=== PATIENT | male | born 1990 | race Asian ===

== ENCOUNTER 2017-02-02 23:54 | Inpatient (IN) | payer MEDICAID, OTHER ==
[~2017-02-02] VITALS: Ht 162.6 cm; Wt 90.9 kg
[~2017-02-02 23:54] MED LIST: PALI117D IM; PALI6 PO
[2017-02-03] MEDS ORDERED: DiphenhydrAMINE HCL 50 MG/ML VIAL IM ONE ×2 (01:15→12:45)
[2017-02-03] MEDS ORDERED: HALOPERIDOL LACTATE 5 MG/ML VIAL IM ONE ×2 (01:15→12:45)
[2017-02-03] MEDS ORDERED: LORazepam 2 MG/ML VIAL IM ONE ×3 (01:15→17:15)
[2017-02-03 02:41] LABS: BASOPHILS % (AUTO) 0.3 % (0.0-2.0); EOSINOPHILS % (AUTO) 1.5 % (1.0-6.0); HEMATOCRIT 38.9 % (41-53); HEMOGLOBIN 12.5 g/dL (13.5-17.5); LYMPHOCYTES # (AUTO) 1.8 K/uL (1.0-4.8); LYMPHOCYTES % (AUTO) 20.5 % (22.0-44.0); MEAN CORPUSCULAR HEMOGLOBIN 28.1 pg (26.0-34.0); MEAN CORPUSCULAR HGB CONC 32.1 G/dL (31.0-37.0); MEAN CORPUSCULAR VOLUME 87 fL (80-100); MONOCYTES # (AUTO) 0.8 K/uL (0.1-1.0); NEUTROPHILS # (AUTO) 5.9 K/uL (1.8-7.7); NEUTROPHILS % (AUTO) 68.7 % (40.0-70.0); PLATELET COUNT (AUTO) 271 K/uL (150-450); RED BLOOD CELL COUNT(AUTO) 4.45 MIL/uL (4.50-5.90); RED CELL DISTRIBUTION WIDTH 14.6 % (11.5-14.5); WHITE BLOOD COUNT (AUTO) 8.6 K/uL (4.5-11.0)
[2017-02-03 02:52] LABS: ANION GAP 11 mmol/L (8-16); CALCIUM, TOTAL 8.2 mg/dL (8.8-10.5); CARBON DIOXIDE 23 mmol/L (22-29); CHLORIDE 104 mmol/L (98-107); CREATININE 0.94 mg/dL (0.60-1.30); GLOMERULAR FILTR. RATE CALC > 60 mL/min (>60); POTASSIUM 3.8 mmol/L (3.5-5.1); SODIUM SERUM 138 mmol/L (136-145); UREA NITROGEN, BLOOD 19 mg/dL (7-18)
[2017-02-03 02:58] LABS: ALANINE AMINOTRANSFERASE 40 U/L (12-78); ALBUMIN 3.9 g/dL (3.4-5.0); ASPARTATE AMINOTRANSFERASE 24 U/L (15-37); BILIRUBIN,TOTAL 0.5 mg/dL (0.1-1.0); TOTAL PROTEIN, SERUM 7.5 g/dL (6.4-8.2)
[2017-02-03] MEDS: HALOPERIDOL 5 MG TABLET PO PRN (08:47)
[2017-02-03] MEDS: LORazepam 2 MG TABLET PO PRN (08:47)
[2017-02-03 18:05] VITALS: BP 147/98
[2017-02-04] MEDS: ZOLPIDEM TARTRATE 10 MG TABLET PO PRN (01:08)
[2017-02-04] MEDS: HALOPERIDOL 5 MG TABLET PO PRN (07:47)
[2017-02-04] MEDS: NICOTINE 21 MG/24 HOUR PATCH TD SCH (07:47)
[2017-02-04] MEDS: LORazepam 2 MG TABLET PO PRN ×2 (07:48→18:01)
[2017-02-04 08:30] VITALS: BP 153/96
[2017-02-04] MEDS: PALIPERIDONE 6 MG ER TABLET PO SCH ×2 (10:33→17:19)
[2017-02-04] MEDS ORDERED: IBUPROFEN 400 MG TABLET PO PRN (15:15)
[2017-02-04] MEDS ORDERED: ACETAMINOPHEN 325 MG TABLET PO PRN (15:15)
[2017-02-04] MEDS: FERROUS SULFATE 325 MG EC TABLET PO SCH (17:19)
[2017-02-04 19:00] VITALS: BP 124/76
[2017-02-05] MEDS: HALOPERIDOL 5 MG TABLET PO PRN ×4 (00:41→20:14)
[2017-02-05] MEDS: ZOLPIDEM TARTRATE 10 MG TABLET PO PRN ×2 (00:41→21:32)
[2017-02-05] MEDS: LORazepam 2 MG TABLET PO PRN ×3 (04:50→19:05)
[2017-02-05] MEDS: FERROUS SULFATE 325 MG EC TABLET PO SCH ×2 (06:55→17:11)
[2017-02-05 07:18] LABS: HEMOGLOBIN A1C 5.7 % (4.5-6.2)
[2017-02-05 07:19] LABS: CHOL/HDL RATIO 2.2 (4.2-7.3); THYROID STIMULATING HORMONE 2.12 uIU/mL (0.36-3.74)
[2017-02-05] MEDS: PALIPERIDONE 6 MG ER TABLET PO SCH ×2 (08:10→17:11)
[2017-02-05] MEDS: NICOTINE 21 MG/24 HOUR PATCH TD SCH (08:10)
[2017-02-05 08:17] VITALS: BP 135/78
[2017-02-05] MEDS ORDERED: LORazepam 2 MG/ML VIAL IM ONE (08:30)
[2017-02-05] MEDS ORDERED: HALOPERIDOL LACTATE 5 MG/ML VIAL IM ONE (08:30)
[2017-02-05] MEDS ORDERED: DiphenhydrAMINE HCL 50 MG/ML VIAL IM ONE (08:30)
[2017-02-05] MEDS ORDERED: LORazepam 2 MG/ML VIAL ONE (08:33)
[2017-02-05] MEDS ORDERED: DiphenhydrAMINE HCL 50 MG/ML VIAL ONE (08:34)
[2017-02-05] MEDS ORDERED: HALOPERIDOL LACTATE 5 MG/ML VIAL ONE (08:34)
[2017-02-05] MEDS ORDERED: PALIPERIDONE PALMITATE 234 MG/1.5 ML SYRINGE IM SCH (09:00)
[2017-02-05 18:49] VITALS: BP 122/79
[2017-02-06] MEDS: LORazepam 2 MG TABLET PO PRN ×2 (01:06→18:55)
[2017-02-06] MEDS: HALOPERIDOL 5 MG TABLET PO PRN ×2 (01:21→18:55)
[2017-02-06] MEDS: FERROUS SULFATE 325 MG EC TABLET PO SCH ×2 (07:05→16:47)
[2017-02-06] MEDS: PALIPERIDONE 6 MG ER TABLET PO SCH ×2 (08:12→16:47)
[2017-02-06] MEDS: NICOTINE 21 MG/24 HOUR PATCH TD SCH (08:13)
[2017-02-06 13:09] VITALS: BP 136/89
[2017-02-06 16:30] VITALS: BP 134/90
[2017-02-06 17:36] LABS: ADD UA MICROSCOPIC NO; APPEARANCE,URINE CLEAR (CLEAR); GLUCOSE, URINE (UA) NEGATIVE (NEGATIVE); KETONES,URINE NEGATIVE (NEGATIVE); LEUKOCYTE ESTERASE ,URINE NEGATIVE (NEGATIVE); OCCULT BLOOD,URINE NEGATIVE (NEGATIVE); PROTEIN,URINE NEGATIVE (NEGATIVE)
[2017-02-07] MEDS: LORazepam 2 MG TABLET PO PRN ×2 (02:20→16:09)
[2017-02-07] MEDS: ZOLPIDEM TARTRATE 10 MG TABLET PO PRN ×2 (02:20→20:48)
[2017-02-07] MEDS: FERROUS SULFATE 325 MG EC TABLET PO SCH ×2 (07:00→17:58)
[2017-02-07 08:29] VITALS: BP 124/78
[2017-02-07] MEDS: PALIPERIDONE 6 MG ER TABLET PO SCH ×2 (09:35→16:07)
[2017-02-07] MEDS: NICOTINE 21 MG/24 HOUR PATCH TD SCH (09:37)
[2017-02-07 16:00] VITALS: BP 147/92
[2017-02-08 00:16] VITALS: BP 132/81
[2017-02-08] MEDS: LORazepam 2 MG TABLET PO PRN (00:18)
[2017-02-08] MEDS: HALOPERIDOL 5 MG TABLET PO PRN (00:46)
[2017-02-08] MEDS: FERROUS SULFATE 325 MG EC TABLET PO SCH (07:02)
[2017-02-08 08:13] VITALS: BP 136/86
[2017-02-08] MEDS: PALIPERIDONE 6 MG ER TABLET PO SCH (08:15)
[2017-02-08] MEDS: NICOTINE 21 MG/24 HOUR PATCH TD SCH (08:16)
[2017-02-08] MEDS ORDERED: FERR-89 PO (10:46)
== END 2017-02-08 12:10 | disposition home or self-care (01) | DRG 750 ==
LOC: EMS 23:55 → 3EC 02-03 17:03
PROVIDERS: ADMIT Psychiatry & Neurology Child & Adolescent Psychiatry; ATTEND Psychiatry & Neurology Child & Adolescent Psychiatry
DX: F25.1 Schizoaffective disorder, depressive type (principal); R45.851 Suicidal ideations; E83.51 Hypocalcemia; I10 Essential (primary) hypertension; Z72.0 Tobacco use; D64.9 Anemia, unspecified; F12.10 Cannabis abuse, uncomplicated; Z78.1 Physical restraint status
CPT/HCPCS: 83036; 84443; 96372; 99285; G0480; J1200; J1630; J2060

== ENCOUNTER 2017-03-20 11:04 | Emergency (ER) | payer MEDICAID, OTHER ==
[~2017-03-20] VITALS: Ht 175.3 cm; Wt 90.9 kg
[~2017-03-20 11:04] MED LIST changes: +FERR-89 PO
[2017-03-20 12:39] VITALS: BP 128/77
== END 2017-03-20 15:24 | disposition home or self-care (01) ==
LOC: EMS 11:06
DX: S82.832A Other fracture of upper and lower end of left fibula, initial encounter for closed fracture (principal); F12.90 Cannabis use, unspecified, uncomplicated; F15.90 Other stimulant use, unspecified, uncomplicated; F17.210 Nicotine dependence, cigarettes, uncomplicated; X58.XXXA Exposure to other specified factors, initial encounter; Y93.89 Activity, other specified; Y92.89 Other specified places as the place of occurrence of the external cause; Y99.8 Other external cause status
CPT/HCPCS: 29515; 99284

== ENCOUNTER 2019-10-27 00:10 | Inpatient (IN) | payer MEDICAID, OTHER ==
[~2019-10-27] VITALS: Ht 163.8 cm; Wt 97.5 kg
[~2019-10-27 00:10] MED LIST changes: +DIVA-78 PO; -FERR-89 PO; -PALI117D IM
[2019-10-27] MEDS ORDERED: ONDANSETRON HCL 4 MG/2 ML VIAL IVP PRN (04:30)
[2019-10-27] MEDS ORDERED: 0.9% SODIUM CHLORIDE 10 ML SYRINGE IVP PRN (04:30)
[2019-10-27] MEDS ORDERED: ACETAMINOPHEN 325 MG TABLET PO PRN ×2 (04:30→13:45)
[2019-10-27 04:39] LABS: ANION GAP 8 mmol/L (8-16); CALCIUM, TOTAL 8.4 mg/dL (8.8-10.5); CARBON DIOXIDE 26 mmol/L (22-29); CHLORIDE 105 mmol/L (98-107); CREATININE 0.81 mg/dL (0.60-1.30); GLOMERULAR FILTR. RATE CALC > 60 mL/min (>60); GLUCOSE,RANDOM 176 mg/dL (70-110); POTASSIUM 3.6 mmol/L (3.5-5.1); SODIUM SERUM 139 mmol/L (136-145); UREA NITROGEN, BLOOD 15 mg/dL (7-18)
[2019-10-27 04:44] LABS: BASOPHILS % (AUTO) 0.4 % (0.0-2.0); HEMATOCRIT 35.2 % (41-53); HEMOGLOBIN 11.6 g/dL (13.5-17.5); LYMPHOCYTES # (AUTO) 1.2 K/uL (1.0-4.8); LYMPHOCYTES % (AUTO) 14.7 % (22.0-44.0); MEAN CORPUSCULAR HEMOGLOBIN 28.1 pg (26.0-34.0); MEAN CORPUSCULAR HGB CONC 32.9 G/dL (31.0-37.0); MEAN CORPUSCULAR VOLUME 86 fL (80-100); MONOCYTES # (AUTO) 0.7 K/uL (0.1-1.0); MONOCYTES % (AUTO) 9.2 % (2.0-9.0); NEUTROPHILS # (AUTO) 5.9 K/uL (1.8-7.7); NEUTROPHILS % (AUTO) 73.7 % (40.0-70.0); PLATELET COUNT (AUTO) 270 K/uL (150-450); RED BLOOD CELL COUNT(AUTO) 4.12 MIL/uL (4.50-5.90); RED CELL DISTRIBUTION WIDTH 15.8 % (11.5-14.5)
[2019-10-27 04:46] LABS: ALANINE AMINOTRANSFERASE 80 U/L (12-78); ALBUMIN 3.5 g/dL (3.4-5.0); ALKALINE PHOSPHATASE 64 U/L (46-116); ASPARTATE AMINOTRANSFERASE 59 U/L (15-37); BILIRUBIN,TOTAL 0.5 mg/dL (0.1-1.0); TOTAL PROTEIN, SERUM 7.1 g/dL (6.4-8.2)
[2019-10-27 08:26] LABS: AMPHET/METH SCREEN,URINE NEGATIVE (NEGATIVE); BARBITURATE SCREEN, URINE NEGATIVE (NEGATIVE); BENZODIAZEPINES SCREEN,URINE NEGATIVE (NEGATIVE); CANNABINOID SCREEN,URINE POSITIVE (NEGATIVE); COCAINE SCREEN,URINE NEGATIVE (NEGATIVE); METHADONE SCREEN, URINE NEGATIVE (NEGATIVE); OPIATE SCREEN,URINE NEGATIVE (NEGATIVE)
[2019-10-27 08:27] LABS: PHENCYCLIDINE SCREEN,URINE NEGATIVE (NEGATIVE)
[2019-10-27] MEDS ORDERED: MAG HYDROX/AL HYDROX/SIMETH ES 30 ML SUSPENSION UDCUP PO PRN ×2 (13:45)
[2019-10-27] MEDS ORDERED: NICOTINE 14 MG/24 HOUR PATCH TD PRN ×2 (13:45)
[2019-10-27] MEDS ORDERED: ALBUTEROL SULFATE HFA 90 MCG/PUFF 8 GM INHALER IH PRN ×2 (13:45)
[2019-10-27] MEDS ORDERED: DiphenhydrAMINE HCL 50 MG/ML VIAL IM ONE (13:45)
[2019-10-27] MEDS ORDERED: HALOPERIDOL LACTATE 5 MG/ML VIAL IM ONE (13:45)
[2019-10-27] MEDS ORDERED: GuaiFENesin/D-METHORPHAN [SUGAR-FREE] 200-20MG/10 ML SYRUP UDCUP PO PRN (13:45)
[2019-10-27] MEDS ORDERED: ONDANSETRON HCL 4 MG TABLET PO PRN ×2 (13:45)
[2019-10-27] MEDS ORDERED: CloNIDine HCL 0.1 MG TABLET PO PRN ×2 (13:45)
[2019-10-27] MEDS ORDERED: LOPERAMIDE HCL 2 MG CAPSULE PO PRN ×2 (13:45)
[2019-10-27] MEDS ORDERED: MAGNESIUM HYDROXIDE SUSPENSION 30 ML UDCUP PO PRN ×2 (13:45)
[2019-10-27] MEDS ORDERED: LORazepam 2 MG/ML VIAL IM ONE (13:45)
[2019-10-27] MEDS ORDERED: PETROLATUM,WHITE 28 GM JELLY TP PRN ×2 (13:45)
[2019-10-27] MEDS ORDERED: DOCUSATE SODIUM 100 MG CAPSULE PO PRN ×2 (13:45)
[2019-10-27] MEDS ORDERED: IBUPROFEN 400 MG TABLET PO PRN (13:45)
[2019-10-27] MEDS ORDERED: INFLUENZA VIRUS VACCINE QVS 2019-20 (3YR+)/PF 60 MCG/0.5 ML SYRINGE IM ONE (18:45)
[2019-10-27] MEDS: PALIPERIDONE 6 MG ER TABLET PO SCH (21:18)
[2019-10-27] MEDS: DIVALPROEX SODIUM 500 MG DR TABLET PO SCH (21:18)
[2019-10-27 21:44] VITALS: BP 129/59
[2019-10-27] MEDS: IBUPROFEN 400 MG TABLET PO PRN (21:44)
[2019-10-27] MEDS: GuaiFENesin/D-METHORPHAN [SUGAR-FREE] 200-20MG/10 ML SYRUP UDCUP PO PRN (22:53)
[2019-10-28 00:11] VITALS: BP_SYST 126; BP_SYST 148; BP_DIAS 61; BP_DIAS 85
[2019-10-28] MEDS: ACETAMINOPHEN 325 MG TABLET PO PRN (00:13)
[2019-10-28 08:14] VITALS: BP 134/80
[2019-10-28] MEDS: DIVALPROEX SODIUM 500 MG DR TABLET PO SCH ×2 (08:39→20:09)
[2019-10-28] MEDS: PALIPERIDONE 6 MG ER TABLET PO SCH ×2 (08:40→20:09)
[2019-10-28] MEDS: IBUPROFEN 400 MG TABLET PO PRN (09:28)
[2019-10-28] MEDS: GuaiFENesin/D-METHORPHAN [SUGAR-FREE] 200-20MG/10 ML SYRUP UDCUP PO PRN ×2 (10:12→16:15)
[2019-10-28 16:13] VITALS: BP 143/76
[2019-10-28] MEDS: LORazepam 2 MG TABLET PO PRN ×2 (16:24→20:30)
[2019-10-28] MEDS: HALOPERIDOL 5 MG TABLET PO PRN (16:35)
[2019-10-28] MEDS: ZOLPIDEM TARTRATE 10 MG TABLET PO PRN (20:30)
[2019-10-29 01:34] VITALS: BP 145/61
[2019-10-29] MEDS: HALOPERIDOL 5 MG TABLET PO PRN ×3 (02:11→15:54)
[2019-10-29] MEDS: LORazepam 2 MG TABLET PO PRN ×3 (02:11→15:54)
[2019-10-29] MEDS: IBUPROFEN 400 MG TABLET PO PRN (02:32)
[2019-10-29] MEDS: DIVALPROEX SODIUM 500 MG DR TABLET PO SCH ×3 (08:37→22:07)
[2019-10-29] MEDS: PALIPERIDONE 6 MG ER TABLET PO SCH ×3 (08:37→22:07)
[2019-10-29 09:49] VITALS: BP 113/65
[2019-10-29] MEDS: GuaiFENesin/D-METHORPHAN [SUGAR-FREE] 200-20MG/10 ML SYRUP UDCUP PO PRN (14:30)
[2019-10-29] MEDS ORDERED: LORazepam 2 MG/ML VIAL ONE (16:19)
[2019-10-29] MEDS ORDERED: DiphenhydrAMINE HCL 50 MG/ML VIAL ONE (16:19)
[2019-10-29] MEDS ORDERED: HALOPERIDOL LACTATE 5 MG/ML VIAL ONE (16:20)
[2019-10-29] MEDS ORDERED: HALOPERIDOL LACTATE 5 MG/ML VIAL IM ONE (16:20)
[2019-10-29] MEDS ORDERED: LORazepam 2 MG/ML VIAL IM ONE (16:20)
[2019-10-29] MEDS ORDERED: DiphenhydrAMINE HCL 50 MG/ML VIAL IM ONE (16:20)
[2019-10-29 16:30] VITALS: BP 117/81
[2019-10-29] MEDS ORDERED: DIVA250T4 PO (17:15)
[2019-10-29 18:29] VITALS: BP 117/81
[2019-10-30 01:15] VITALS: BP 120/92
[2019-10-30] MEDS: IBUPROFEN 400 MG TABLET PO PRN ×2 (02:09→13:56)
[2019-10-30] MEDS: GuaiFENesin/D-METHORPHAN [SUGAR-FREE] 200-20MG/10 ML SYRUP UDCUP PO PRN ×2 (02:10→17:13)
[2019-10-30 08:11] VITALS: BP 143/94
[2019-10-30] MEDS: PALIPERIDONE 6 MG ER TABLET PO SCH ×2 (09:20→20:25)
[2019-10-30] MEDS: DIVALPROEX SODIUM 500 MG DR TABLET PO SCH ×2 (09:20→20:42)
[2019-10-30 17:06] VITALS: BP 121/73
[2019-10-30] MEDS: LORazepam 2 MG TABLET PO PRN (17:13)
[2019-10-30] MEDS: ZOLPIDEM TARTRATE 10 MG TABLET PO PRN (20:25)
[2019-10-30] MEDS: HALOPERIDOL 5 MG TABLET PO PRN (20:41)
[2019-10-31 00:44] VITALS: BP 116/83
[2019-10-31] MEDS: ACETAMINOPHEN 325 MG TABLET PO PRN (01:11)
[2019-10-31] MEDS: GuaiFENesin/D-METHORPHAN [SUGAR-FREE] 200-20MG/10 ML SYRUP UDCUP PO PRN (02:44)
[2019-10-31] MEDS: IBUPROFEN 400 MG TABLET PO PRN (02:44)
[2019-10-31 08:23] VITALS: BP 126/97
[2019-10-31] MEDS: DIVALPROEX SODIUM 500 MG DR TABLET PO SCH ×2 (08:27→20:31)
[2019-10-31] MEDS: PALIPERIDONE 6 MG ER TABLET PO SCH ×2 (08:27→20:31)
[2019-10-31] MEDS: LORazepam 2 MG TABLET PO PRN ×2 (09:01→16:44)
[2019-10-31 16:19] VITALS: BP 129/75
[2019-11-01] MEDS: ZOLPIDEM TARTRATE 10 MG TABLET PO PRN ×2 (00:15→20:15)
[2019-11-01] MEDS: LORazepam 2 MG TABLET PO PRN ×3 (00:15→20:44)
[2019-11-01] MEDS: IBUPROFEN 400 MG TABLET PO PRN ×2 (02:40→23:45)
[2019-11-01 05:33] VITALS: BP 126/68
[2019-11-01] MEDS: PALIPERIDONE 6 MG ER TABLET PO SCH (08:21)
[2019-11-01] MEDS: DIVALPROEX SODIUM 500 MG DR TABLET PO SCH ×2 (08:21→20:15)
[2019-11-01 08:45] VITALS: BP 124/79
[2019-11-01] MEDS: GuaiFENesin/D-METHORPHAN [SUGAR-FREE] 200-20MG/10 ML SYRUP UDCUP PO PRN (13:00)
[2019-11-01 16:15] VITALS: BP 106/85
[2019-11-01] MEDS: HALOPERIDOL 5 MG TABLET PO PRN (16:44)
[2019-11-01] MEDS ORDERED: DIVA-78 PO (17:00)
[2019-11-01] MEDS ORDERED: PALI3 PO (17:00)
[2019-11-01] MEDS: PALIPERIDONE 3 MG ER TABLET PO SCH (20:15)
[2019-11-02 01:26] VITALS: BP 138/91
[2019-11-02] MEDS: GuaiFENesin/D-METHORPHAN [SUGAR-FREE] 200-20MG/10 ML SYRUP UDCUP PO PRN ×2 (05:04→22:00)
[2019-11-02 08:23] VITALS: BP 140/108
[2019-11-02] MEDS: PALIPERIDONE 3 MG ER TABLET PO SCH ×2 (08:35→20:19)
[2019-11-02] MEDS: DIVALPROEX SODIUM 500 MG DR TABLET PO SCH ×2 (08:36→20:20)
[2019-11-02 16:06] VITALS: BP 123/69
[2019-11-02] MEDS: LORazepam 2 MG TABLET PO PRN (16:20)
[2019-11-02] MEDS: ZOLPIDEM TARTRATE 10 MG TABLET PO PRN (20:19)
[2019-11-02] MEDS: IBUPROFEN 400 MG TABLET PO PRN (22:00)
[2019-11-02 22:02] VITALS: BP 140/86
[2019-11-03 00:22] VITALS: BP 133/91
[2019-11-03] MEDS: PALIPERIDONE 3 MG ER TABLET PO SCH ×2 (08:01→20:12)
[2019-11-03] MEDS: DIVALPROEX SODIUM 500 MG DR TABLET PO SCH ×2 (08:01→20:12)
[2019-11-03 08:06] VITALS: BP 162/76
[2019-11-03] MEDS: GuaiFENesin/D-METHORPHAN [SUGAR-FREE] 200-20MG/10 ML SYRUP UDCUP PO PRN (10:03)
[2019-11-03] MEDS ORDERED: MULTIVITAMINS, THERAPEUTIC TABLET PO ONE (11:00)
[2019-11-03] MEDS ORDERED: PALIPERIDONE PALMITATE 234 MG/1.5 ML SYRINGE IM SCH (16:00)
[2019-11-03 16:22] VITALS: BP 150/94
[2019-11-03] MEDS: LORazepam 2 MG TABLET PO PRN ×2 (17:00→21:00)
[2019-11-03] MEDS: ZOLPIDEM TARTRATE 10 MG TABLET PO PRN (20:12)
[2019-11-04 00:21] VITALS: BP 127/82
[2019-11-04] MEDS: PALIPERIDONE 3 MG ER TABLET PO SCH (08:30)
[2019-11-04] MEDS: DIVALPROEX SODIUM 500 MG DR TABLET PO SCH (08:31)
[2019-11-04 08:35] VITALS: BP 139/64
[2019-11-04] MEDS ORDERED: DIVA-78 PO (10:51)
[2019-11-04] MEDS ORDERED: PALI234D IM (10:51)
[2019-11-06] MEDS ORDERED: PALIPERIDONE PALMITATE 156 MG/ML SYRINGE IM ONE (09:00)
== END 2019-11-04 13:30 | disposition home or self-care (01) | DRG 750 ==
LOC: EMS 00:10 → B3A 07:11
DX: F25.0 Schizoaffective disorder, bipolar type (principal); Z59.0 Homelessness; D64.9 Anemia, unspecified; F12.10 Cannabis abuse, uncomplicated; F15.10 Other stimulant abuse, uncomplicated; I10 Essential (primary) hypertension; F17.210 Nicotine dependence, cigarettes, uncomplicated; F41.9 Anxiety disorder, unspecified; R73.9 Hyperglycemia, unspecified
CPT/HCPCS: 83036; G0480; J1200; J1630; J2060

== ENCOUNTER 2019-11-07 00:58 | Emergency (ER) | payer MEDICAID, OTHER ==
[~2019-11-07] VITALS: Ht 163.8 cm; Wt 95.5 kg
[~2019-11-07 00:58] MED LIST changes: +PALI234D IM; -PALI6 PO
[2019-11-07 01:30] VITALS: BP 140/88
[2019-11-07] MEDS ORDERED: IBUPROFEN 800 MG TABLET PO ONE (01:30)
== END 2019-11-07 02:01 | disposition home or self-care (01) ==
LOC: EMS 00:59
DX: M79.671 Pain in right foot (principal); M79.672 Pain in left foot; F31.9 Bipolar disorder, unspecified; F20.9 Schizophrenia, unspecified; F12.90 Cannabis use, unspecified, uncomplicated; F19.90 Other psychoactive substance use, unspecified, uncomplicated; Z59.0 Homelessness

== ENCOUNTER 2019-11-11 23:01 | Emergency (ER) | payer OTHER ==
[~2019-11-11] VITALS: Ht 162.6 cm; Wt 97.7 kg
[2019-11-11 23:18] VITALS: BP 121/70
[2019-11-11 23:51] LABS: BASOPHILS % (AUTO) 0.4 % (0.0-2.0); HEMOGLOBIN 11.8 g/dL (13.5-17.5); LYMPHOCYTES % (AUTO) 11.7 % (22.0-44.0); MEAN CORPUSCULAR HEMOGLOBIN 28.2 pg (26.0-34.0); MEAN CORPUSCULAR HGB CONC 32.7 G/dL (31.0-37.0); MEAN CORPUSCULAR VOLUME 86 fL (80-100); MONOCYTES # (AUTO) 0.7 K/uL (0.1-1.0); MONOCYTES % (AUTO) 8.2 % (2.0-9.0); NEUTROPHILS # (AUTO) 6.7 K/uL (1.8-7.7); NEUTROPHILS % (AUTO) 77.7 % (40.0-70.0); PLATELET COUNT (AUTO) 284 K/uL (150-450); RED BLOOD CELL COUNT(AUTO) 4.18 MIL/uL (4.50-5.90); RED CELL DISTRIBUTION WIDTH 15.2 % (11.5-14.5)
[2019-11-11 23:58] LABS: ANION GAP 7 mmol/L (8-16); CALCIUM, TOTAL 8.9 mg/dL (8.8-10.5); CARBON DIOXIDE 30 mmol/L (22-29); CHLORIDE 102 mmol/L (98-107); CREATININE 0.97 mg/dL (0.60-1.30); GLOMERULAR FILTR. RATE CALC > 60 mL/min (>60); GLUCOSE,RANDOM 124 mg/dL (70-110); POTASSIUM 3.5 mmol/L (3.5-5.1); SODIUM SERUM 139 mmol/L (136-145); UREA NITROGEN, BLOOD 14 mg/dL (7-18)
[2019-11-12 00:04] LABS: ALANINE AMINOTRANSFERASE 86 U/L (12-78); ALBUMIN 3.3 g/dL (3.4-5.0); ALKALINE PHOSPHATASE 77 U/L (46-116); ASPARTATE AMINOTRANSFERASE 55 U/L (15-37); BILIRUBIN,TOTAL 0.3 mg/dL (0.1-1.0)
[2019-11-12 00:16] LABS: VALPROIC ACID < 3 mcg/mL (50-100)
[2019-11-12 00:30] LABS: AMPHET/METH SCREEN,URINE NEGATIVE (NEGATIVE); BARBITURATE SCREEN, URINE NEGATIVE (NEGATIVE); BENZODIAZEPINES SCREEN,URINE NEGATIVE (NEGATIVE); CANNABINOID SCREEN,URINE POSITIVE (NEGATIVE); COCAINE SCREEN,URINE NEGATIVE (NEGATIVE); METHADONE SCREEN, URINE NEGATIVE (NEGATIVE); OPIATE SCREEN,URINE NEGATIVE (NEGATIVE)
[2019-11-12 00:31] LABS: PHENCYCLIDINE SCREEN,URINE NEGATIVE (NEGATIVE)
== END 2019-11-12 02:30 | disposition home or self-care (01) ==
LOC: EMS 23:02
DX: F20.9 Schizophrenia, unspecified (principal); F31.9 Bipolar disorder, unspecified; F17.210 Nicotine dependence, cigarettes, uncomplicated; F15.90 Other stimulant use, unspecified, uncomplicated; F12.90 Cannabis use, unspecified, uncomplicated; Z59.0 Homelessness; Z79.899 Other long term (current) drug therapy
CPT/HCPCS: 36415; 80053; 80164; 80307; 85025; 99284; G0480

== ENCOUNTER 2019-11-15 22:39 | Emergency (ER) | payer OTHER ==
[~2019-11-15] VITALS: Ht 162.6 cm; Wt 90.9 kg
[~2019-11-15 22:39] MED LIST changes: -DIVA-78 PO
[2019-11-15 22:48] VITALS: BP 120/71
== END 2019-11-16 01:12 | disposition left against medical advice (07) ==
LOC: EMS 22:41
DX: M25.572 Pain in left ankle and joints of left foot (principal); Z53.21 Procedure and treatment not carried out due to patient leaving prior to being seen by health care provider

== ENCOUNTER 2020-02-15 19:27 | Emergency (ER) | payer OTHER ==
[~2020-02-15] VITALS: Ht 162.6 cm; Wt 81.8 kg
[2020-02-15 20:14] VITALS: BP 117/67
[2020-02-15] MEDS ORDERED: BACITRACIN 0.9 GM PACKET OINTMENT TP ONE (20:15)
[2020-02-15] MEDS ORDERED: PERTUSS(ACELL),DIPH,TET VAC/PF 0.5 ML VIAL IM ONE (20:15)
[2020-02-15 20:52] LABS: BASOPHILS % (AUTO) 0.3 % (0.0-2.0); HEMATOCRIT 39.8 % (41-53); HEMOGLOBIN 13.3 g/dL (13.5-17.5); LYMPHOCYTES # (AUTO) 0.9 K/uL (1.0-4.8); LYMPHOCYTES % (AUTO) 12.4 % (22.0-44.0); MEAN CORPUSCULAR HEMOGLOBIN 28.4 pg (26.0-34.0); MEAN CORPUSCULAR HGB CONC 33.5 G/dL (31.0-37.0); MEAN CORPUSCULAR VOLUME 85 fL (80-100); MONOCYTES # (AUTO) 0.5 K/uL (0.1-1.0); NEUTROPHILS # (AUTO) 5.8 K/uL (1.8-7.7); NEUTROPHILS % (AUTO) 78.3 % (40.0-70.0); PLATELET COUNT (AUTO) 250 K/uL (150-450); RED BLOOD CELL COUNT(AUTO) 4.69 MIL/uL (4.50-5.90); RED CELL DISTRIBUTION WIDTH 14.6 % (11.5-14.5)
[2020-02-15] MEDS ORDERED: DIPH25CA85 PO (20:58)
[2020-02-15 21:02] LABS: ANION GAP 11 mmol/L (8-16); CALCIUM, TOTAL 9.1 mg/dL (8.8-10.5); CARBON DIOXIDE 25 mmol/L (22-29); CHLORIDE 106 mmol/L (98-107); CREATININE 0.94 mg/dL (0.60-1.30); GLOMERULAR FILTR. RATE CALC > 60 mL/min (>60); GLUCOSE,RANDOM 109 mg/dL (70-110); POTASSIUM 3.7 mmol/L (3.5-5.1); SODIUM SERUM 142 mmol/L (136-145); UREA NITROGEN, BLOOD 22 mg/dL (7-18)
[2020-02-15 21:13] LABS: INR 1.1 (0.9-1.1); PROTHROMBIN TIME 10.9 SEC (9.4-11.6)
[2020-02-15 21:28] LABS: ALANINE AMINOTRANSFERASE 59 U/L (12-78); ALKALINE PHOSPHATASE 86 U/L (46-116); ASPARTATE AMINOTRANSFERASE 29 U/L (15-37); BILIRUBIN,TOTAL 0.4 mg/dL (0.1-1.0); CREATINE KINASE, TOTAL ONLY 700 U/L (39-308); TOTAL PROTEIN, SERUM 7.7 g/dL (6.4-8.2)
[2020-02-15 21:46] LABS: B-TYPE NATRIURETIC PEPTIDE < 5 pg/mL (0-100)
== END 2020-02-15 21:43 | disposition left against medical advice (07) ==
LOC: EMS 19:29
DX: S09.90XA Unspecified injury of head, initial encounter (principal); F31.9 Bipolar disorder, unspecified; F20.9 Schizophrenia, unspecified; F17.210 Nicotine dependence, cigarettes, uncomplicated; F15.90 Other stimulant use, unspecified, uncomplicated; F12.90 Cannabis use, unspecified, uncomplicated; Y04.0XXA Assault by unarmed brawl or fight, initial encounter; Y93.89 Activity, other specified; Y92.89 Other specified places as the place of occurrence of the external cause; Y99.8 Other external cause status
CPT/HCPCS: 70450; 71045; 72125; 80053; 82550; 83880; 84484; 85025; 85610; 85730; 93005; 99285; 99406; G0480; 90715

== ENCOUNTER 2020-02-18 13:17 | Inpatient (IN) | payer MEDICAID, OTHER ==
[~2020-02-18] VITALS: Ht 162.6 cm; Wt 77.3 kg
[~2020-02-18 13:17] MED LIST changes: +DIPH25CA85 PO
[2020-02-18] MEDS ORDERED: LORazepam 2 MG/ML VIAL IM ONE ×2 (14:00→19:00)
[2020-02-18] MEDS ORDERED: HALOPERIDOL LACTATE 5 MG/ML VIAL IM ONE ×2 (14:00→19:00)
[2020-02-18 14:05] LABS: BASOPHILS % (AUTO) 0.3 % (0.0-2.0); EOSINOPHILS % (AUTO) 2.2 % (1.0-6.0); HEMATOCRIT 38.6 % (41-53); HEMOGLOBIN 12.4 g/dL (13.5-17.5); LYMPHOCYTES # (AUTO) 1.7 K/uL (1.0-4.8); LYMPHOCYTES % (AUTO) 24.5 % (22.0-44.0); MEAN CORPUSCULAR HEMOGLOBIN 27.8 pg (26.0-34.0); MEAN CORPUSCULAR VOLUME 87 fL (80-100); MONOCYTES # (AUTO) 0.7 K/uL (0.1-1.0); MONOCYTES % (AUTO) 9.4 % (2.0-9.0); NEUTROPHILS # (AUTO) 4.4 K/uL (1.8-7.7); NEUTROPHILS % (AUTO) 63.6 % (40.0-70.0); PLATELET COUNT (AUTO) 220 K/uL (150-450); RED BLOOD CELL COUNT(AUTO) 4.45 MIL/uL (4.50-5.90); RED CELL DISTRIBUTION WIDTH 14.8 % (11.5-14.5)
[2020-02-18 14:14] LABS: ANION GAP 9 mmol/L (8-16); CALCIUM, TOTAL 8.8 mg/dL (8.8-10.5); CARBON DIOXIDE 27 mmol/L (22-29); CHLORIDE 106 mmol/L (98-107); CREATININE 0.83 mg/dL (0.60-1.30); GLOMERULAR FILTR. RATE CALC > 60 mL/min (>60); GLUCOSE,RANDOM 97 mg/dL (70-110); POTASSIUM 3.8 mmol/L (3.5-5.1); SODIUM SERUM 142 mmol/L (136-145); UREA NITROGEN, BLOOD 17 mg/dL (7-18)
[2020-02-18 14:21] LABS: ALANINE AMINOTRANSFERASE 52 U/L (12-78); ALBUMIN 3.8 g/dL (3.4-5.0); ALKALINE PHOSPHATASE 81 U/L (46-116); ASPARTATE AMINOTRANSFERASE 35 U/L (15-37); BILIRUBIN,TOTAL 0.5 mg/dL (0.1-1.0); TOTAL PROTEIN, SERUM 7.5 g/dL (6.4-8.2)
[2020-02-18] MEDS ORDERED: HALOPERIDOL 5 MG TABLET PO ONE (15:00)
[2020-02-18] MEDS ORDERED: LORazepam 2 MG TABLET PO ONE (15:00)
[2020-02-18] MEDS ORDERED: LORazepam 2 MG TABLET PO PRN (16:00)
[2020-02-18] MEDS ORDERED: DiphenhydrAMINE HCL 50 MG/ML VIAL IM ONE (19:00)
[2020-02-19 00:30] VITALS: BP 132/83
[2020-02-19] MEDS: HALOPERIDOL 5 MG TABLET PO PRN ×2 (06:15→16:16)
[2020-02-19 08:26] LABS: BASOPHILS % (AUTO) 0.4 % (0.0-2.0); EOSINOPHILS % (AUTO) 3.2 % (1.0-6.0); HEMATOCRIT 36.9 % (41-53); HEMOGLOBIN 12.2 g/dL (13.5-17.5); LYMPHOCYTES # (AUTO) 0.8 K/uL (1.0-4.8); LYMPHOCYTES % (AUTO) 17.8 % (22.0-44.0); MEAN CORPUSCULAR HEMOGLOBIN 28.4 pg (26.0-34.0); MEAN CORPUSCULAR HGB CONC 33.1 G/dL (31.0-37.0); MEAN CORPUSCULAR VOLUME 86 fL (80-100); MONOCYTES # (AUTO) 0.3 K/uL (0.1-1.0); MONOCYTES % (AUTO) 6.9 % (2.0-9.0); NEUTROPHILS # (AUTO) 3.2 K/uL (1.8-7.7); NEUTROPHILS % (AUTO) 71.7 % (40.0-70.0); PLATELET COUNT (AUTO) 218 K/uL (150-450); RED CELL DISTRIBUTION WIDTH 14.3 % (11.5-14.5)
[2020-02-19] MEDS: BACITRACIN 28.4 GM OINTMENT TP SCH ×2 (08:39→16:15)
[2020-02-19 08:53] LABS: ALANINE AMINOTRANSFERASE 44 U/L (12-78); ALBUMIN 3.4 g/dL (3.4-5.0); ALKALINE PHOSPHATASE 72 U/L (46-116); ANION GAP 8 mmol/L (8-16); ASPARTATE AMINOTRANSFERASE 29 U/L (15-37); BILIRUBIN,TOTAL 0.5 mg/dL (0.1-1.0); CALCIUM, TOTAL 8.6 mg/dL (8.8-10.5); CARBON DIOXIDE 26 mmol/L (22-29); CHLORIDE 107 mmol/L (98-107); CREATININE 0.88 mg/dL (0.60-1.30); FREE T4 (FREE THYROXINE) 0.94 ng/dL (0.76-1.46); GLOMERULAR FILTR. RATE CALC > 60 mL/min (>60); GLUCOSE,RANDOM 120 mg/dL (70-110); POTASSIUM 4.1 mmol/L (3.5-5.1); SODIUM SERUM 141 mmol/L (136-145); THYROID STIMULATING HORMONE 0.65 uIU/mL (0.36-3.74); TOTAL PROTEIN, SERUM 6.8 g/dL (6.4-8.2); UREA NITROGEN, BLOOD 18 mg/dL (7-18)
[2020-02-19] MEDS ORDERED: BACITRACIN 28.4 GM OINTMENT TP SCH (09:00)
[2020-02-19] MEDS: LORazepam 1 MG TABLET PO PRN (16:16)
[2020-02-19 16:24] VITALS: BP 110/65
[2020-02-19] MEDS ORDERED: DiphenhydrAMINE HCL 50 MG/ML VIAL IM ONE ×2 (16:30→23:30)
[2020-02-19] MEDS ORDERED: LORazepam 2 MG/ML VIAL IM ONE ×2 (16:30→23:30)
[2020-02-19] MEDS ORDERED: HALOPERIDOL LACTATE 5 MG/ML VIAL IM ONE ×2 (16:30→23:30)
[2020-02-19] MEDS: OLANZapine 5 MG TABLET PO SCH (20:18)
[2020-02-20] MEDS: LORazepam 1 MG TABLET PO PRN ×2 (05:33→11:38)
[2020-02-20] MEDS: HALOPERIDOL 5 MG TABLET PO PRN (05:33)
[2020-02-20 05:52] VITALS: BP 124/82
[2020-02-20] MEDS: BACITRACIN 28.4 GM OINTMENT TP SCH ×2 (09:05→17:01)
[2020-02-20] MEDS: OLANZapine 5 MG TABLET PO SCH (21:35)
[2020-02-20] MEDS: ZOLPIDEM TARTRATE 10 MG TABLET PO PRN (22:31)
[2020-02-21 00:44] VITALS: BP 141/86
[2020-02-21] MEDS: HALOPERIDOL 5 MG TABLET PO PRN ×3 (03:30→16:07)
[2020-02-21] MEDS: LORazepam 1 MG TABLET PO PRN ×4 (03:30→20:10)
[2020-02-21 08:43] VITALS: BP 126/93
[2020-02-21] MEDS ORDERED: ACETAMINOPHEN 325 MG TABLET PO PRN (08:45)
[2020-02-21] MEDS ORDERED: ONDANSETRON HCL 4 MG TABLET PO PRN (08:45)
[2020-02-21] MEDS ORDERED: LOPERAMIDE HCL 2 MG CAPSULE PO PRN (08:45)
[2020-02-21] MEDS ORDERED: PETROLATUM,WHITE 28 GM JELLY TP PRN (08:45)
[2020-02-21] MEDS ORDERED: NICOTINE 14 MG/24 HOUR PATCH TD PRN (08:45)
[2020-02-21] MEDS ORDERED: MAG HYDROX/AL HYDROX/SIMETH ES 30 ML SUSPENSION UDCUP PO PRN (08:45)
[2020-02-21] MEDS ORDERED: IBUPROFEN 400 MG TABLET PO PRN (08:45)
[2020-02-21] MEDS ORDERED: GuaiFENesin/D-METHORPHAN [SUGAR-FREE] 200-20MG/10 ML SYRUP UDCUP PO PRN (08:45)
[2020-02-21] MEDS ORDERED: DOCUSATE SODIUM 100 MG CAPSULE PO PRN (08:45)
[2020-02-21] MEDS ORDERED: MAGNESIUM HYDROXIDE SUSPENSION 30 ML UDCUP PO PRN (08:45)
[2020-02-21] MEDS ORDERED: ALBUTEROL SULFATE HFA 90 MCG/PUFF 8 GM INHALER IH PRN (08:45)
[2020-02-21] MEDS ORDERED: CloNIDine HCL 0.1 MG TABLET PO PRN (08:45)
[2020-02-21] MEDS: BACITRACIN 28.4 GM OINTMENT TP SCH (16:06)
[2020-02-21 16:33] VITALS: BP 136/67
[2020-02-21] MEDS: ZOLPIDEM TARTRATE 10 MG TABLET PO PRN (20:10)
[2020-02-21] MEDS: OLANZapine 5 MG TABLET PO SCH (20:10)
[2020-02-22 00:15] VITALS: BP 124/78
[2020-02-22] MEDS: HALOPERIDOL 5 MG TABLET PO PRN ×2 (00:17→04:21)
[2020-02-22] MEDS: LORazepam 1 MG TABLET PO PRN ×2 (00:18→04:21)
[2020-02-22] MEDS: BACITRACIN 28.4 GM OINTMENT TP SCH (08:51)
[2020-02-22 09:07] VITALS: BP 133/61
[2020-02-22] MEDS ORDERED: OLAN5TAB2 PO (15:05)
[2020-02-22] MEDS ORDERED: OLANZapine 5 MG TABLET PO SCH (21:00)
== END 2020-02-22 16:00 | disposition home or self-care (01) | DRG 750 ==
LOC: EMS 13:19 → B3A 16:33
PROVIDERS: ADMIT Psychiatry & Neurology Psychiatry; ATTEND Psychiatry & Neurology Psychiatry
DX: F25.0 Schizoaffective disorder, bipolar type (principal); Z59.0 Homelessness; D64.9 Anemia, unspecified; I10 Essential (primary) hypertension; F41.9 Anxiety disorder, unspecified; F32.9 Major depressive disorder, single episode, unspecified; F15.10 Other stimulant abuse, uncomplicated; F12.10 Cannabis abuse, uncomplicated; F10.10 Alcohol abuse, uncomplicated; Y90.9 Presence of alcohol in blood, level not specified; F17.210 Nicotine dependence, cigarettes, uncomplicated
CPT/HCPCS: 84439; 84443; G0480; J1200; J1630; J2060

== ENCOUNTER 2020-02-27 04:07 | Emergency (ER) | payer MEDICAID, OTHER ==
[~2020-02-27] VITALS: Ht 162.6 cm; Wt 77.3 kg
[~2020-02-27 04:07] MED LIST changes: -DIPH25CA85 PO; +OLAN5TAB2 PO; -PALI234D IM
[2020-02-27 04:11] VITALS: BP 140/80
== END 2020-02-27 04:20 | disposition left against medical advice (07) ==
LOC: EMS 04:07
DX: M79.605 Pain in left leg (principal); Z53.21 Procedure and treatment not carried out due to patient leaving prior to being seen by health care provider

== ENCOUNTER 2020-03-02 23:59 | Emergency (ER) | payer OTHER | END 2020-03-03 00:45 | disposition left against medical advice (07) | LOC: EMS 23:59 | DX: Z00.00 Encounter for general adult medical examination without abnormal findings (principal); Z53.21 Procedure and treatment not carried out due to patient leaving prior to being seen by health care provider ==

== ENCOUNTER 2020-03-16 00:59 | Inpatient (IN) | payer MEDICAID, OTHER ==
[~2020-03-16] VITALS: Ht 175.3 cm; Wt 95.5 kg
[2020-03-16] MEDS ORDERED: DiphenhydrAMINE HCL 50 MG/ML VIAL IM ONE ×2 (01:45→22:15)
[2020-03-16] MEDS ORDERED: LORazepam 2 MG/ML VIAL IM ONE ×2 (01:45→22:15)
[2020-03-16] MEDS ORDERED: HALOPERIDOL LACTATE 5 MG/ML VIAL IM ONE ×2 (01:45→22:15)
[2020-03-16 02:05] LABS: BASOPHILS % (AUTO) 0.4 % (0.0-2.0); EOSINOPHILS % (AUTO) 0.9 % (1.0-6.0); HEMATOCRIT 37.5 % (41-53); HEMOGLOBIN 12.7 g/dL (13.5-17.5); LYMPHOCYTES # (AUTO) 1.3 K/uL (1.0-4.8); MEAN CORPUSCULAR HEMOGLOBIN 29.1 pg (26.0-34.0); MEAN CORPUSCULAR HGB CONC 33.8 G/dL (31.0-37.0); MEAN CORPUSCULAR VOLUME 86 fL (80-100); MONOCYTES # (AUTO) 0.6 K/uL (0.1-1.0); NEUTROPHILS # (AUTO) 6.3 K/uL (1.8-7.7); NEUTROPHILS % (AUTO) 75.7 % (40.0-70.0); PLATELET COUNT (AUTO) 324 K/uL (150-450); RED BLOOD CELL COUNT(AUTO) 4.36 MIL/uL (4.50-5.90); RED CELL DISTRIBUTION WIDTH 14.1 % (11.5-14.5)
[2020-03-16 02:12] LABS: ANION GAP 5 mmol/L (8-16); CALCIUM, TOTAL 8.7 mg/dL (8.8-10.5); CARBON DIOXIDE 30 mmol/L (22-29); CHLORIDE 105 mmol/L (98-107); CREATININE 0.78 mg/dL (0.60-1.30); GLOMERULAR FILTR. RATE CALC > 60 mL/min (>60); GLUCOSE,RANDOM 163 mg/dL (70-110); POTASSIUM 4.1 mmol/L (3.5-5.1); SODIUM SERUM 140 mmol/L (136-145); UREA NITROGEN, BLOOD 13 mg/dL (7-18)
[2020-03-16 02:17] LABS: AMPHET/METH SCREEN,URINE NEGATIVE (NEGATIVE); BARBITURATE SCREEN, URINE NEGATIVE (NEGATIVE); BENZODIAZEPINES SCREEN,URINE NEGATIVE (NEGATIVE); CANNABINOID SCREEN,URINE NEGATIVE (NEGATIVE); COCAINE SCREEN,URINE NEGATIVE (NEGATIVE); METHADONE SCREEN, URINE NEGATIVE (NEGATIVE); OPIATE SCREEN,URINE NEGATIVE (NEGATIVE)
[2020-03-16 02:18] LABS: ALANINE AMINOTRANSFERASE 53 U/L (12-78); ALBUMIN 3.5 g/dL (3.4-5.0); ALKALINE PHOSPHATASE 110 U/L (46-116); ASPARTATE AMINOTRANSFERASE 31 U/L (15-37); BILIRUBIN,TOTAL 0.2 mg/dL (0.1-1.0); TOTAL PROTEIN, SERUM 7.4 g/dL (6.4-8.2)
[2020-03-16 02:19] LABS: PHENCYCLIDINE SCREEN,URINE NEGATIVE (NEGATIVE)
[2020-03-16 04:29] VITALS: BP 117/68
[2020-03-16 04:39] LABS: APPEARANCE,URINE CLEAR (CLEAR); BILIRUBIN,URINE NEGATIVE (NEGATIVE); GLUCOSE, URINE (UA) NEGATIVE (NEGATIVE); KETONES,URINE NEGATIVE (NEGATIVE); LEUKOCYTE ESTERASE ,URINE NEGATIVE (NEGATIVE); NITRATE,URINE NEGATIVE (NEGATIVE); OCCULT BLOOD,URINE NEGATIVE (NEGATIVE); PH,URINE 6.5 (5.0-8.0); PROTEIN,URINE NEGATIVE (NEGATIVE)
[2020-03-16] MEDS ORDERED: PETROLATUM,WHITE 28 GM JELLY TP PRN (07:45)
[2020-03-16] MEDS ORDERED: DOCUSATE SODIUM 100 MG CAPSULE PO PRN (07:45)
[2020-03-16] MEDS ORDERED: IBUPROFEN 400 MG TABLET PO PRN (07:45)
[2020-03-16] MEDS ORDERED: ALBUTEROL SULFATE HFA 90 MCG/PUFF 8 GM INHALER IH PRN (07:45)
[2020-03-16] MEDS ORDERED: CloNIDine HCL 0.1 MG TABLET PO PRN (07:45)
[2020-03-16] MEDS ORDERED: MAGNESIUM HYDROXIDE SUSPENSION 30 ML UDCUP PO PRN (07:45)
[2020-03-16] MEDS ORDERED: MAG HYDROX/AL HYDROX/SIMETH ES 30 ML SUSPENSION UDCUP PO PRN (07:45)
[2020-03-16] MEDS ORDERED: NICOTINE 14 MG/24 HOUR PATCH TD PRN (07:45)
[2020-03-16] MEDS ORDERED: GuaiFENesin/D-METHORPHAN [SUGAR-FREE] 200-20MG/10 ML SYRUP UDCUP PO PRN (07:45)
[2020-03-16] MEDS ORDERED: ACETAMINOPHEN 325 MG TABLET PO PRN (07:45)
[2020-03-16] MEDS ORDERED: ONDANSETRON HCL 4 MG TABLET PO PRN (07:45)
[2020-03-16] MEDS ORDERED: LOPERAMIDE HCL 2 MG CAPSULE PO PRN (07:45)
[2020-03-16] MEDS: LORazepam 2 MG TABLET PO PRN (10:29)
[2020-03-16] MEDS: OLANZapine 10 MG TABLET PO SCH (16:38)
[2020-03-16 17:09] VITALS: BP 115/71
[2020-03-16] MEDS ORDERED: LORazepam 2 MG/ML VIAL ONE (22:16)
[2020-03-16] MEDS ORDERED: HALOPERIDOL LACTATE 5 MG/ML VIAL ONE (22:17)
[2020-03-16] MEDS ORDERED: DiphenhydrAMINE HCL 50 MG/ML VIAL ONE (22:17)
[2020-03-17] MEDS ORDERED: LOPERAMIDE HCL 2 MG CAPSULE PO PRN (08:30)
[2020-03-17] MEDS ORDERED: MAG HYDROX/AL HYDROX/SIMETH ES 30 ML SUSPENSION UDCUP PO PRN (08:30)
[2020-03-17] MEDS ORDERED: IBUPROFEN 400 MG TABLET PO PRN (08:30)
[2020-03-17] MEDS ORDERED: NICOTINE 14 MG/24 HOUR PATCH TD PRN (08:30)
[2020-03-17] MEDS ORDERED: CloNIDine HCL 0.1 MG TABLET PO PRN (08:30)
[2020-03-17] MEDS ORDERED: MAGNESIUM HYDROXIDE SUSPENSION 30 ML UDCUP PO PRN (08:30)
[2020-03-17] MEDS ORDERED: ONDANSETRON HCL 4 MG TABLET PO PRN (08:30)
[2020-03-17] MEDS ORDERED: DOCUSATE SODIUM 100 MG CAPSULE PO PRN (08:30)
[2020-03-17] MEDS ORDERED: ALBUTEROL SULFATE HFA 90 MCG/PUFF 8 GM INHALER IH PRN (08:30)
[2020-03-17] MEDS ORDERED: ACETAMINOPHEN 325 MG TABLET PO PRN (08:30)
[2020-03-17] MEDS ORDERED: PETROLATUM,WHITE 28 GM JELLY TP PRN (08:30)
[2020-03-17] MEDS ORDERED: GuaiFENesin/D-METHORPHAN [SUGAR-FREE] 200-20MG/10 ML SYRUP UDCUP PO PRN (08:30)
[2020-03-17] MEDS: OLANZapine 10 MG TABLET PO SCH ×2 (09:06→16:08)
[2020-03-17] MEDS: LORazepam 2 MG TABLET PO PRN (16:08)
[2020-03-17 16:12] VITALS: BP 105/70
[2020-03-18 00:32] VITALS: BP 119/75
[2020-03-18] MEDS ORDERED: DiphenhydrAMINE HCL 50 MG/ML VIAL IM ONE (03:30)
[2020-03-18] MEDS ORDERED: LORazepam 2 MG/ML VIAL IM ONE (03:30)
[2020-03-18] MEDS ORDERED: HALOPERIDOL LACTATE 5 MG/ML VIAL IM ONE (03:30)
[2020-03-18] MEDS: OLANZapine 10 MG TABLET PO SCH ×2 (08:35→16:31)
[2020-03-18] MEDS: LORazepam 2 MG TABLET PO PRN ×3 (13:11→22:28)
[2020-03-18] MEDS: ZOLPIDEM TARTRATE 10 MG TABLET PO PRN (21:59)
[2020-03-19 06:14] LABS: GLUCOMETER DEV NAME(LOC) BV3N.; GLUCOSE,POINT OF CARE 94 MG/DL (70-110)
[2020-03-19] MEDS: OLANZapine 10 MG TABLET PO SCH ×2 (08:24→16:55)
[2020-03-19] MEDS: LORazepam 2 MG TABLET PO PRN ×2 (08:24→16:55)
[2020-03-19 16:11] VITALS: BP 110/71
[2020-03-19] MEDS: HALOPERIDOL 5 MG TABLET PO PRN (16:55)
[2020-03-20 01:03] VITALS: BP 110/65
[2020-03-20] MEDS: ZOLPIDEM TARTRATE 10 MG TABLET PO PRN (01:42)
[2020-03-20 08:26] VITALS: BP 109/60
[2020-03-20] MEDS: HALOPERIDOL 5 MG TABLET PO PRN (08:38)
[2020-03-20] MEDS: OLANZapine 10 MG TABLET PO SCH (08:38)
[2020-03-20] MEDS: LORazepam 2 MG TABLET PO PRN (08:38)
[2020-03-20 16:08] VITALS: BP 135/69
[2020-03-20] MEDS: ZIPRASIDONE HCL 20 MG CAPSULE PO SCH (17:06)
[2020-03-21 01:29] VITALS: BP 132/60
[2020-03-21] MEDS: HALOPERIDOL 5 MG TABLET PO PRN (04:33)
[2020-03-21] MEDS: LORazepam 2 MG TABLET PO PRN ×2 (04:33→16:23)
[2020-03-21] MEDS: ZIPRASIDONE HCL 20 MG CAPSULE PO SCH ×2 (06:29→17:03)
[2020-03-21 08:06] VITALS: BP 126/92
[2020-03-21 16:20] VITALS: BP 135/71
[2020-03-22] MEDS: ZIPRASIDONE HCL 20 MG CAPSULE PO SCH (06:07)
[2020-03-22 08:12] VITALS: BP 127/73
[2020-03-22] MEDS: HALOPERIDOL 5 MG TABLET PO PRN (08:16)
[2020-03-22] MEDS: LORazepam 2 MG TABLET PO PRN ×2 (08:16→11:08)
[2020-03-22] MEDS ORDERED: ZIPR20CA2 PO (13:50)
== END 2020-03-22 14:45 | disposition home or self-care (01) | DRG 885 ==
LOC: EMS 01:01 → B2S 02:16 → B3A 03:58
PROVIDERS: ADMIT Psychiatry & Neurology Psychiatry; ATTEND Psychiatry & Neurology Psychiatry
DX: F25.9 Schizoaffective disorder, unspecified (principal); R45.851 Suicidal ideations; D64.9 Anemia, unspecified; F10.10 Alcohol abuse, uncomplicated; F94.0 Selective mutism; I10 Essential (primary) hypertension; F14.10 Cocaine abuse, uncomplicated; F41.9 Anxiety disorder, unspecified; Z59.0 Homelessness; Z87.891 Personal history of nicotine dependence
CPT/HCPCS: 87081; 99291; G0480; J1200; J1630; J2060

== ENCOUNTER 2021-01-09 20:17 | Emergency (ER) | payer MEDICAID ==
[~2021-01-09 20:17] MED LIST changes: -OLAN5TAB2 PO; +ZIPR20CA2 PO
== END 2021-01-09 20:32 | disposition left against medical advice (07) ==
LOC: EMS 20:19
DX: R45.851 Suicidal ideations (principal); Z53.21 Procedure and treatment not carried out due to patient leaving prior to being seen by health care provider

== ENCOUNTER 2021-01-10 13:46 | Emergency (ER) | payer MEDICAID, OTHER | END 2021-01-10 14:43 | disposition left against medical advice (07) | LOC: EMS 13:58 | DX: M79.673 Pain in unspecified foot (principal); Z53.21 Procedure and treatment not carried out due to patient leaving prior to being seen by health care provider ==

== ENCOUNTER 2021-01-13 05:44 | Emergency (ER) | payer OTHER ==
[~2021-01-13] VITALS: Ht 162.6 cm; Wt 85.5 kg
[2021-01-13 05:51] VITALS: BP 119/101
== END 2021-01-13 06:34 | disposition home or self-care (01) ==
LOC: EMS 05:53
DX: M79.671 Pain in right foot (principal); M79.672 Pain in left foot; F31.9 Bipolar disorder, unspecified; F20.9 Schizophrenia, unspecified; F17.210 Nicotine dependence, cigarettes, uncomplicated; F14.90 Cocaine use, unspecified, uncomplicated; F12.90 Cannabis use, unspecified, uncomplicated; F19.90 Other psychoactive substance use, unspecified, uncomplicated; Z59.0 Homelessness
CPT/HCPCS: 99283; Z7502

== ENCOUNTER 2021-01-13 11:35 | Emergency (ER) | payer OTHER ==
[~2021-01-13] VITALS: Ht 170.2 cm; Wt 77.3 kg
[2021-01-13 13:00] LABS: ANION GAP 14 mmol/L (8-16); CALCIUM, TOTAL 8.6 mg/dL (8.8-10.5); CARBON DIOXIDE 21 mmol/L (22-29); CHLORIDE 105 mmol/L (98-107); CREATININE 1.03 mg/dL (0.60-1.30); GLOMERULAR FILTR. RATE CALC > 60 mL/min (>60); GLUCOSE,RANDOM 88 mg/dL (70-110); POTASSIUM 4.1 mmol/L (3.5-5.1); SODIUM SERUM 140 mmol/L (136-145); UREA NITROGEN, BLOOD 25 mg/dL (7-18)
[2021-01-13 13:05] LABS: ALANINE AMINOTRANSFERASE 88 U/L (12-78); ALBUMIN 4.1 g/dL (3.4-5.0); ALKALINE PHOSPHATASE 69 U/L (46-116); ASPARTATE AMINOTRANSFERASE 88 U/L (15-37); BILIRUBIN,TOTAL 0.9 mg/dL (0.1-1.0); TOTAL PROTEIN, SERUM 7.1 g/dL (6.4-8.2)
[2021-01-13] MEDS ORDERED: HALOPERIDOL LACTATE 5 MG/ML VIAL IM ONE (15:00)
[2021-01-13 16:18] LABS: AMPHET/METH SCREEN,URINE NEGATIVE (NEGATIVE); BARBITURATE SCREEN, URINE NEGATIVE (NEGATIVE); BENZODIAZEPINES SCREEN,URINE POSITIVE (NEGATIVE); CANNABINOID SCREEN,URINE POSITIVE (NEGATIVE); COCAINE SCREEN,URINE NEGATIVE (NEGATIVE); METHADONE SCREEN, URINE NEGATIVE (NEGATIVE); OPIATE SCREEN,URINE NEGATIVE (NEGATIVE)
[2021-01-13 16:19] LABS: PHENCYCLIDINE SCREEN,URINE NEGATIVE (NEGATIVE)
[2021-01-13 18:21] VITALS: BP 144/77
== END 2021-01-13 18:28 | disposition admitted as inpatient to this hospital (09) ==
LOC: EMS 11:35
DX: F20.9 Schizophrenia, unspecified (principal); F31.9 Bipolar disorder, unspecified; F17.210 Nicotine dependence, cigarettes, uncomplicated; F14.90 Cocaine use, unspecified, uncomplicated; F12.90 Cannabis use, unspecified, uncomplicated; F19.90 Other psychoactive substance use, unspecified, uncomplicated; Z59.0 Homelessness
CPT/HCPCS: 36415; 80053; 80307; 96372; 99291; G0480; J1630

== ENCOUNTER 2021-01-18 07:19 | Emergency (ER) | payer OTHER ==
[~2021-01-18] VITALS: Ht 165.1 cm; Wt 72.0 kg
[2021-01-18 07:35] VITALS: BP 142/83
[2021-01-18] MEDS ORDERED: PERTUSS(ACELL),DIPH,TET VAC/PF 0.5 ML SYRINGE IM. ONE (07:45)
[2021-01-18 08:35] LABS: BASOPHILS % (AUTO) 0.3 % (0.0-2.0); HEMOGLOBIN 13.2 g/dL (13.5-17.5); LYMPHOCYTES % (AUTO) 11.1 % (22.0-44.0); MEAN CORPUSCULAR VOLUME 91 fL (80-100); MONOCYTES # (AUTO) 0.7 K/uL (0.1-1.0); MONOCYTES % (AUTO) 7.8 % (2.0-9.0); NEUTROPHILS # (AUTO) 7.4 K/uL (1.8-7.7); NEUTROPHILS % (AUTO) 79.8 % (40.0-70.0); PLATELET COUNT (AUTO) 337 K/uL (150-450); RED BLOOD CELL COUNT(AUTO) 4.41 MIL/uL (4.50-5.90); RED CELL DISTRIBUTION WIDTH 15.1 % (11.5-14.5)
[2021-01-18 08:51] LABS: ANION GAP 10 mmol/L (8-16); CALCIUM, TOTAL 9.1 mg/dL (8.8-10.5); CARBON DIOXIDE 26 mmol/L (22-29); CHLORIDE 102 mmol/L (98-107); CREATININE 0.96 mg/dL (0.60-1.30); GLOMERULAR FILTR. RATE CALC > 60 mL/min (>60); GLUCOSE,RANDOM 111 mg/dL (70-110); POTASSIUM 3.7 mmol/L (3.5-5.1); SODIUM SERUM 138 mmol/L (136-145); UREA NITROGEN, BLOOD 26 mg/dL (7-18)
[2021-01-18 08:52] LABS: ALANINE AMINOTRANSFERASE 72 U/L (12-78); ALBUMIN 3.9 g/dL (3.4-5.0); ALKALINE PHOSPHATASE 63 U/L (46-116); ASPARTATE AMINOTRANSFERASE 57 U/L (15-37); BILIRUBIN,TOTAL 0.6 mg/dL (0.1-1.0); TOTAL PROTEIN, SERUM 7.1 g/dL (6.4-8.2)
== END 2021-01-18 09:43 ==
LOC: EMS 07:24
DX: T75.4XXA Electrocution, initial encounter (principal); F32.9 Major depressive disorder, single episode, unspecified; F20.9 Schizophrenia, unspecified; F17.210 Nicotine dependence, cigarettes, uncomplicated; Z59.0 Homelessness; Y35.839A Legal intervention involving a conducted energy device, unspecified person injured, initial encounter; Y93.89 Activity, other specified; Y92.89 Other specified places as the place of occurrence of the external cause; Y99.8 Other external cause status
CPT/HCPCS: 36415; 73030; 80053; 85025; 90471; 90715; 93005; 99285; G0480

== ENCOUNTER 2021-04-03 23:54 | Emergency (ER) | payer OTHER ==
[~2021-04-03] VITALS: Ht 175.3 cm; Wt 77.3 kg
[2021-04-04 00:15] VITALS: BP 105/69
[2021-04-04 00:22] LABS: BASOPHILS % (AUTO) 0.2 % (0.0-2.0); EOSINOPHILS % (AUTO) 2.9 % (1.0-6.0); HEMATOCRIT 37.3 % (41-53); HEMOGLOBIN 12.5 g/dL (13.5-17.5); LYMPHOCYTES # (AUTO) 1.5 K/uL (1.0-4.8); LYMPHOCYTES % (AUTO) 16.4 % (22.0-44.0); MEAN CORPUSCULAR HEMOGLOBIN 29.4 pg (26.0-34.0); MEAN CORPUSCULAR HGB CONC 33.4 G/dL (31.0-37.0); MEAN CORPUSCULAR VOLUME 88 fL (80-100); MONOCYTES # (AUTO) 0.7 K/uL (0.1-1.0); MONOCYTES % (AUTO) 7.8 % (2.0-9.0); NEUTROPHILS # (AUTO) 6.8 K/uL (1.8-7.7); NEUTROPHILS % (AUTO) 72.7 % (40.0-70.0); PLATELET COUNT (AUTO) 388 K/uL (150-450); RED BLOOD CELL COUNT(AUTO) 4.23 MIL/uL (4.50-5.90); RED CELL DISTRIBUTION WIDTH 13.8 % (11.5-14.5)
[2021-04-04 00:32] LABS: ANION GAP 5 mmol/L (8-16); CALCIUM, TOTAL 8.1 mg/dL (8.8-10.5); CARBON DIOXIDE 29 mmol/L (22-29); CHLORIDE 104 mmol/L (98-107); CREATININE 0.81 mg/dL (0.60-1.30); GLOMERULAR FILTR. RATE CALC > 60 mL/min (>60); GLUCOSE,RANDOM 107 mg/dL (70-110); POTASSIUM 3.1 mmol/L (3.5-5.1); SODIUM SERUM 138 mmol/L (136-145); UREA NITROGEN, BLOOD 27 mg/dL (7-18)
[2021-04-04 00:38] LABS: ALANINE AMINOTRANSFERASE 54 U/L (12-78); ALBUMIN 3.1 g/dL (3.4-5.0); ALKALINE PHOSPHATASE 93 U/L (46-116); ASPARTATE AMINOTRANSFERASE 38 U/L (15-37); BILIRUBIN,TOTAL 0.3 mg/dL (0.1-1.0); TOTAL PROTEIN, SERUM 6.7 g/dL (6.4-8.2)
== END 2021-04-04 00:33 | disposition home or self-care (01) ==
LOC: EMS 23:57
DX: F20.9 Schizophrenia, unspecified (principal); Z59.0 Homelessness
CPT/HCPCS: 80053; 85025; 99284; G0480